=== PATIENT | male | born 1990 | race African-American/Black ===

== ENCOUNTER 2018-11-12 08:36 | Emergency (ER) | payer SELFPAY ==
--- NOTE | 2018-11-12 09:34 | ER Document Report ---
ED General - General Chief Complaint: Vomiting Stated Complaint: RECTAL ISSUE, VOMITING, STOMACH PAIN Time Seen by Provider: 11/12/18 09:34 Notes: Patient is a 28-year-old male that presents to the emergency department for chief complaint of nausea, vomiting. Patient states that he woke up this morning, had nausea and several episodes of vomiting, but is feeling better now. He has had some chills associated with this, did not take his temperature at home, denies any sick contacts that he is aware of, was feeling otherwise okay yesterday. He also mentions that he has had a hemorrhoid for approximately 2 years, is uncomfortable to sit and occasionally gets bleeding with passing of clots. He wanted to mention this as well, but he does not think that they are related. He denies having any specific pain associated with his hemorrhoid. He denies any other complaints at this time. Past Medical History: Denies chronic medical conditions Past Surgical History: Denies surgical history Social History: Admits to smoking cigarettes daily, and occasional alcohol use, and admits to occasional marijuana use. Family History: Reviewed and noncontributory for presenting illness Allergies: Reviewed, see documented allergy list. REVIEW OF SYSTEMS: Other than noted above, the 12 point review of systems was reviewed with the patient and were negative, all pertinent findings are included in the HPI. PHYSICAL EXAMINATION: Vital signs reviewed, nursing noted reviewed. GENERAL: Well-appearing, well-nourished and in no acute distress. HEAD: Atraumatic, normocephalic. EYES: Eyes appear normal, extraocular movements intact, sclera anicteric, conjunctiva are normal. ENT: nares patent, oropharynx clear without exudates. Moist mucous membranes. NECK: Normal range of motion, supple without lymphadenopathy LUNGS: Breath sounds clear to auscultation bilaterally and equal. No wheezes rales or rhonchi. HEART: Regular rate and rhythm without murmurs ABDOMEN: Soft, nontender, normoactive bowel sounds. No rebound, guarding, or rigidity. No masses appreciated. External rectal exam: With rawhide bone roller present, the patient's anus was examined, he did have small hemorrhoids noted in the 9 and 6 o'clock position, no evidence of thrombosed hemorrhoid. No fissures. No active bleeding. EXTREMITIES: Nontender, good range of motion, no pitting or edema. NEUROLOGICAL: No focal neurological deficits. Moves all extremities spont aneously Motor and sensory grossly intact on exam. PSYCH: Normal mood, normal affect. SKIN: Warm, Dry, normal turgor, no rashes or lesions noted on exposed skin TRAVEL OUTSIDE OF THE [place] IN LAST 30 DAYS: No - Related Data Allergies/Adverse Reactions: No Known Allergies Allergy (Verified 11/12/18 09:32) Past Medical History - Social History Smoking Status: Current Every Day Smoker Chew tobacco use (# tins/day): No Frequency of alcohol use: Social Drug Abuse: Marijuana Family History: Reviewed & Not Pertinent Patient has suicidal ideation: No Patient has homicidal ideation: No Renal/ Medical History: Denies: Hx Peritoneal Dialysis - Immunizations Hx Diphtheria, Pertussis, Tetanus Vaccination: No Physical Exam - Vital signs Vitals: Temp Pulse Resp BP Pulse Ox 99.0 F 89 16 123/78 97 11/12/18 08:45 11/12/18 08:45 11/12/18 08:45 11/12/18 08:45 11/12/18 08:45 Course - Re-evaluation Re-evalutation: Patient seen and examined vital signs reviewed. Patient was evaluated and treated as appropriate for the patient's presenting symptoms and complaint, with consideration of any critical or life threatening conditions that may be associated with their obtained history and exam as noted above. Patient was treated with Zofran ODT and given a Zofran dispense pack to take home Evaluation was most consistent with nausea and vomiting, hemorrhoid, patient was advised to use sitz baths, and to follow-up with a surgeon, is given a referral. Plan of care was discussed with the patient at this point, after careful consideration I feel that that patient can be discharged from the emergency department, the patient was educated treatments and reasons to return to the emergency department based on their presumed diagnosis as noted above, they were advised to followup with a primary care physician in 2-3 days. Patient was agreeable to plan of care. *Note is created using voice recognition software and may contain spelling, syntax or grammatical errors. - Vital Signs Vital signs: Temp Pulse Resp BP Pulse Ox 99.0 F 89 16 123/78 97 11/12/18 08:45 11/12/18 08:45 11/12/18 08:45 11/12/18 08:45 11/12/18 08:45 Discharge - Discharge Clinical Impression: Nausea and vomiting Qualifiers: Vomiting type: unspecified Vomiting Intractability: non-intractable Qualified Code(s): R11.2 - Nausea with vomiting, unspecified Hemorrhoids Qualifiers: Hemorrhoid type: unspecified Qualified Code(s): K64.9 - Unspecified hemorrhoids Condition: Stable Disposition: HOME, SELF-CARE Instructions: Vomiting ([facility]), Hemorrhoids ([facility]) Additional Instructions: Please follow-up with surgery regarding your hemorrhoid, you can do water called sits baths, which is sitting in about an inch of warm water, he can do this throughout the day to help with your hemorrhoid symptoms, please take the Zofran dispensed from the ED, every 6-8 hours as needed for nausea and vomiting. Attempt to maintain her hydration at home by drinking fluids such as Gatorade or Powerade, you can also eat soups, that will help maintain your hydration. Referrals: MOISÉS MCKINNEY MD [ACTIVE STAFF] - Follow up in 3-5 days (surgery )
[2018-11-12] MEDS ORDERED: ONDANSETRON 4 MG TAB.RAPDIS PO ONE (09:57)
[2018-11-12] MEDS ORDERED: ONDANSETRON ODT 4 MG TAB (6 TAB/ER DISP) PO PRN (09:57)
[2018-11-12 10:14] VITALS: BP 128/77
== END 2018-11-12 10:16 | disposition home or self-care (01) ==
LOC: ER 08:36
DX: R11.2 Nausea with vomiting, unspecified (principal); K64.9 Unspecified hemorrhoids; F12.90 Cannabis use, unspecified, uncomplicated; F17.210 Nicotine dependence, cigarettes, uncomplicated
CPT/HCPCS: 99283; S0119

== ENCOUNTER 2020-05-02 17:33 | Emergency (ER) | payer SELFPAY ==
[2020-05-02 17:38] VITALS: BP 128/74
--- NOTE | 2020-05-02 18:37 | ER Document Report ---
ED Medical Screen (RME) - General Chief Complaint: Laceration Stated Complaint: LACERATION/LEFT HAND Time Seen by Provider: 05/02/20 18:33 Mode of Arrival: Ambulatory Information source: Patient Notes: HPI; 29-year-old male presents emergency room with a puncture wound/laceration to his right hand between the thumb and index finger. Patient states he went to do dishes stuck his hands in the water and a paring knife punctured his right hand. Bleeding is controlled. Tetanus is up-to-date. Patient is right-handed. PE: Alert and oriented x3. Mild distress noted. There is a 1 cm lacera tion/puncture wound to the right hand between the right thumb and index finger. Bleeding is controlled. Positive right radial pulse. I have greeted and performed a rapid initial assessment of this patient. A comprehensive ED assessment and evaluation of the patient, analysis of test results and completion of the medical decision making process will be conducted by additional ED providers. I have specifically instructed the patient or family members with the patient to immediately return to any nursing staff should anything change in the patient's condition or with their chief complaint. TRAVEL OUTSIDE OF THE [place] IN LAST 30 DAYS: No - Related Data Allergies/Adverse Reactions: No Known Allergies Allergy (Verified 11/12/18 09:32) Past Medical History Renal/ Medical History: Denies: Hx Peritoneal Dialysis - Immunizations Hx Diphtheria, Pertussis, Tetanus Vaccination: No Physical Exam - Vital signs Vitals: Temp Pulse Resp BP Pulse Ox 98.6 F 94 16 128/74 H 96 05/02/20 17:37 05/02/20 17:37 05/02/20 17:37 05/02/20 17:37 05/02/20 17:37 Course - Vital Signs Vital signs: Temp Pulse Resp BP Pulse Ox 98.6 F 94 16 128/74 H 96 05/02/20 17:37 05/02/20 17:37 05/02/20 17:37 05/02/20 17:37 05/02/20 17:37
--- NOTE | 2020-05-02 19:06 | RADIOLOGY REPORT (SQ) ---
EXAM DESCRIPTION: HAND RIGHT 3 VIEWS IMAGES COMPLETED DATE/TIME: 05/02/2020 6:58 pm REASON FOR STUDY: laceration COMPARISON: None. EXAM PARAMETERS: NUMBER OF VIEWS: Three views. TECHNIQUE: AP, lateral and oblique radiographic images acquired of the right hand. LIMITATIONS: None. FINDINGS: MINERALIZATION: Normal. BONES: No acute fracture or dislocation. No worrisome bone lesions. JOINTS: No effusions. SOFT TISSUES: No soft tissue swelling. No foreign body. OTHER: No other significant finding. IMPRESSION: NEGATIVE STUDY OF THE RIGHT HAND. NO RADIOGRAPHIC EVIDENCE OF ACUTE INJURY. TECHNICAL DOCUMENTATION: JOB ID: [id number] 2010 [email or web address]- All Rights Reserved Reading location - IP/workstation name: [email or web address]
== END 2020-05-03 03:07 | disposition left against medical advice (07) ==
LOC: ER 17:33
DX: Z53.20 Procedure and treatment not carried out because of patient's decision for unspecified reasons (principal); S61.412A Laceration without foreign body of left hand, initial encounter; W26.0XXA Contact with knife, initial encounter; Y93.G1 Activity, food preparation and clean up
CPT/HCPCS: 99281

== ENCOUNTER 2020-05-03 17:45 | Emergency (ER) | payer SELFPAY ==
--- NOTE | 2020-05-03 18:06 | ER Document Report ---
HPI - HPI Patient complains to provider of: Laceration right hand Time Seen by Provider: 05/03/20 18:05 Pain Level: 2 Associated Symptoms: None Similar symptoms previously: No Notes: Laceration to right hand sustained last night washing dishes no foreign body to the affected area per patient it was a knife that struck him not glass. - REPRODUCTIVE Reproductive: DENIES: : Past Medical History - General Information source: Patient - Social History Smoking Status: Unknown if Ever Smoked Frequency of alcohol use: None Drug Abuse: None Family History: Reviewed & Not Pertinent Renal/ Medical History: Denies: Hx Peritoneal Dialysis - Immunizations Hx Diphtheria, Pertussis, Tetanus Vaccination: No Vertical Provider Document - CONSTITUTIONAL Agree With Documented VS: Yes - INFECTION CONTROL TRAVEL OUTSIDE OF THE [place] IN LAST 30 DAYS: No - HEENT HEENT: Atraumatic, Conjuctival Injection, Normocephalic, PERRLA - NECK Neck: Normal Inspection - RESPIRATORY Respiratory: Breath Sounds Normal - GI/ABDOMEN Gastrointestinal: Abdomen Soft, Abdomen Non-Tender - BACK Back: Normal Inspection - MUSCULOSKELETAL/EXTREMETIES Musculoskeletal/Extremeties: MAEW - NEURO Level of Consciousness: Awake, Alert - DERM Notes: Laceration to dorsal aspect of right hand thenar space is good range of motion positive hitchhiking sign patient is able to touch the first to the second third fourth and fifth digit respectively. Procedures - Laceration/Wound Repair Right Dorsal Hand Wound length (cm): 1 Wound's Depth, Shape: Superficial, Linear, Flap Wound explored: Clean Wound Debrided: Minimal Wound Repaired With: Hoda - 1 staple applied with no lidocaine. Per patient's request. Layer Closure?: No Post-procedure wound care: Sterile dressing applied Post-procedure NV exam normal: Yes Complications: No Discharge - Discharge Clinical Impression: Laceration of right hand Qualifiers: Encounter type: initial encounter Foreign body presence: unspecified Qualified Code(s): S61.411A - Laceration without foreign body of right hand, initial encounter Disposition: HOME, SELF-CARE Instructions: Laceration Care ([facility]), Soap Cleansing ([facility]) Additional Instructions: Laceration Care Your laceration has been sutured to keep the skin edges aligned during healing. The time of suture removal depends on the nature and location of your cut. Please follow the care instructions the doctor has outlined for you and return for further care, according to the schedule you've been given. Keep the wound and dressing clean. Unless you were told otherwise, you may shower daily, blotting the wound dry with a clean, unused towel. At other times, If the dressing gets wet or blood soaked, remove it and blot the wound dry, then reapply a new dressing. Unless you were instructed otherwise, dres sings should be changed at least daily. If any signs of infection occur (swelling, redness, increasing tenderness, red streaks, tender lumps in the armpit or groin above the laceration, or fever) , see the doctor immediately.
== END 2020-05-03 18:28 | disposition home or self-care (01) ==
LOC: ER 17:45
DX: S61.411A Laceration without foreign body of right hand, initial encounter (principal); W26.0XXA Contact with knife, initial encounter; Y93.G1 Activity, food preparation and clean up
CPT/HCPCS: 99282

== ENCOUNTER 2020-05-14 12:18 | Emergency (ER) | payer SELFPAY ==
[2020-05-14 12:23] VITALS: BP 124/77
--- NOTE | 2020-05-14 13:04 | ER Document Report ---
ED Suture/Wound Recheck - General Chief Complaint: Wound Recheck Stated Complaint: SUTURE REMOVAL Time Seen by Provider: 05/14/20 13:00 Mode of Arrival: Ambulatory Information source: Patient Notes: 29-year-old male presented to ED for staple removal from right hand that was placed on May 02. 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 He is alert oriented respirations regular nonlabored speaking in full sentences. TRAVEL OUTSIDE OF THE [place] IN LAST 30 DAYS: No - HPI Previous ED treatment: Laceration repair Quality of pain: No pain Severity: None Pain Level: Denies Context: Injury Symptoms since procedure: No complaints Exacerbated by: Denies Relieved by: Denies - Related Data Allergies/Adverse Reactions: No Known Allergies Allergy (Verified 05/14/20 12:54) Past Medical History - General Information source: Patient - Social History Smoking Status: Current Every Day Smoker Cigarette use (# per day): Yes - Half a pack a day Smoking Education Provided: Yes - 4 minutes Frequency of alcohol use: Social Drug Abuse: Marijuana Family History: Reviewed & Not Pertinent Patient has homicidal ideation: No - Past Medical History Cardiac Medical History: Reports: None Pulmonary Medical History: Reports: None EENT Medical History: Reports: None Neurological Medical History: Reports: None Endocrine Medical History: Reports: None Renal/ Medical History: Reports: None Malignancy Medical History: Reports None GI Medical History: Reports: None Musculoskeletal Medical History: Reports None Skin Medical History: Reports None Psychiatric Medical History: Reports: None Traumatic Medical History: Reports: None Infectious Medical History: Reports: None Surgical Hx: Negative Past Surgical History: Reports: None - Immunizations Hx Diphtheria, Pertussis, Tetanus Vaccination: Yes - 05/02/2020 Review of Systems - Review of Systems Constitutional: No symptoms reported EENT: No symptoms reported Cardiovascular: No symptoms reported Respiratory: No symptoms reported Gastrointestinal: No symptoms reported Genitourinary: No symptoms reported Male Genitourinary: No symptoms reported Musculoskeletal: No symptoms reported Skin: Other - Staple removed from right hand no redness drainage or pain to the site Hematologic/Lymphatic: No symptoms reported Neurological/Psychological: No symptoms reported -: Yes All other systems reviewed and negative Physical Exam - Vital signs Vitals: Temp Pulse Resp BP Pulse Ox 97.6 F 80 16 124/77 98 05/14/20 12:21 05/14/20 12:21 05/14/20 12:21 05/14/20 12:21 05/14/20 12:21 Interpretation: Normal - General General appearance: Appears well, Alert - HEENT Head: Normocephalic, Atraumatic Eyes: Normal Pupils: PERRL - Respiratory Respiratory status: No respiratory distress Chest status: Nontender Breath sounds: Normal Chest palpation: Normal - Cardiovascular Rhythm: Regular Heart sounds: Normal auscultation Murmur: No - Abdominal Inspection: Normal Distension: No distension Bowel sounds: Normal Tenderness: Nontender Organomegaly: No organomegaly - Back Back: Normal, Nontender - Extremities General upper extremity: Normal inspection, Nontender, Normal color, Normal ROM, Normal temperature General lower extremity: Normal inspection, Nontender, Normal color, Normal ROM, Normal temperature, Normal weight bearing. No: Fabian's sign - Neurological Neuro grossly intact: Yes Cognition: Normal Orientation: AAOx4 Emerald Coma Scale Eye Opening: Spontaneous Mcgrann Coma Scale Verbal: Oriented Emerald Coma Scale Motor: Obeys Commands Emerald Coma Scale Total: 15 Speech: Normal Motor strength normal: LUE, RUE, LLE, RLE Sensory: Normal - Psychological Associated symptoms: Normal affect, Normal mood - Skin Skin Temperature: Warm Skin Moisture: Dry Skin Color: Normal Skin irregularity: other - Needed staple removed from the laceration from the 22nd Location of irregularity: Extremities - Right hand Character of irregularity: negative: Erythematous Irregularity with: negative: Swelling, Tenderness, Warmth Course - Re-evaluation Re-evalutation: 05/14/20 23:20 Staple removed from right hand. Bacitracin applied. Patient discharged home with instructions to follow-up with primary care for any complications. Patient was discharged home. - Vital Signs Vital signs: Temp Pulse Resp BP Pulse Ox 97.6 F 80 16 124/77 98 05/14/20 12:21 05/14/20 12:21 05/14/20 12:21 05/14/20 12:21 05/14/20 12:21 Discharge - Discharge Clinical Impression: Removal of staple Condition: Stable Disposition: HOME, SELF-CARE Instructions: Staple Removal ([facility]) Forms: Smoking Cessation Education
== END 2020-05-14 13:02 | disposition home or self-care (01) ==
LOC: ER 12:18
DX: S61.411D Laceration without foreign body of right hand, subsequent encounter (principal); W26.0XXD Contact with knife, subsequent encounter

== ENCOUNTER 2020-05-15 02:50 | Emergency (ER) | payer SELFPAY ==
[2020-05-15 03:34] VITALS: BP 119/75
== END 2020-05-15 03:05 | disposition left against medical advice (07) ==
LOC: ER 02:50
DX: Z53.21 Procedure and treatment not carried out due to patient leaving prior to being seen by health care provider (principal)